=== PATIENT | male | born 1955 | race Caucasian/White ===

== ENCOUNTER 2021-10-28 02:51 | Emergency (ER) | payer BC, MEDICARE ==
[2021-10-28] MEDS ORDERED: Aspirin 81 MG Tab.Chew PO ONE (03:09)
[2021-10-28] MEDS ORDERED: Sodium Chloride 0.9% 10 ML Syringe FLUSH PRN (03:11)
[2021-10-28] MEDS ORDERED: Nitroglycerin 0.4 MG Tab.SL SL ONE (03:17)
[2021-10-28] MEDS ORDERED: Nitroglycerin 0.4 MG Tab.SL ONE (03:19)
[2021-10-28] MEDS ORDERED: Morphine 2 MG/ML SYRINGE IVPUSH ONE ×3 (03:29→05:08)
[2021-10-28] MEDS ORDERED: Sodium Chloride 0.9% 1,000 ML IV SCH (03:45)
[2021-10-28 04:59] LABS: CORONAVIRUS COVID-19 NAA NEGATIVE (NEGATIVE)
== END 2021-10-28 08:14 | disposition home or self-care (01) ==
LOC: JP.ED 02:51
DX: R07.9 Chest pain, unspecified (principal); E78.5 Hyperlipidemia, unspecified; Z20.822 Contact with and (suspected) exposure to COVID-19
CPT/HCPCS: 0241U; 36415; 71045; 71045-26; 80048; 84484; 85025; 85379; 85610; 85730; 93005; 93010; 96374; 96376; 99284; 99285-25; A9270-GY; J2270; J3490; J7030

== ENCOUNTER 2022-09-21 08:40 | Day surgery (SDC) | payer MEDICARE ==
[~2022-09-21 08:40] MED LIST: Midazolam 1 MG/ML 2 ML SDV ONE; Propofol 200 MG/20 ML SDV ONE; fentaNYL 100 MCG/2 ML SDV ONE
[2022-09-21] MEDS ORDERED: Lidocaine 1% with EPINEPHrine 1:100,000 50 ML MDV ONE (08:55)
[2022-09-21] MEDS ORDERED: Lactated Ringers 1,000 ML IV SCH (09:15)
[2022-09-21] MEDS ORDERED: Propofol 200 MG/20 ML SDV ONE (10:08)
[2022-09-21] MEDS ORDERED: Midazolam 1 MG/ML 2 ML SDV ONE (10:08)
[2022-09-21] MEDS ORDERED: fentaNYL 50 MCG/ML SDV ONE (10:08)
== END 2022-09-21 13:20 | disposition home or self-care (01) ==
LOC: JP.SDS 08:40
PROVIDERS: ATTEND Family Medicine
DX: Z12.11 Encounter for screening for malignant neoplasm of colon (principal); Z80.0 Family history of malignant neoplasm of digestive organs; D12.4 Benign neoplasm of descending colon
CPT/HCPCS: 88305; J2250; J2704; J3010; J7120

== ENCOUNTER → 2023-11-24 | Day surgery (SDC) | payer MEDICARE ==
[~2023-11-24] MED LIST changes: -fentaNYL 100 MCG/2 ML SDV ONE; +fentaNYL 50 MCG/ML SDV ONE
[2023-11-24] MEDS: Sodium Chloride 0.9% 1,000 ML IV SCH (09:00)
== END ==
LOC: JP.SDS 08:52
PROVIDERS: ATTEND Surgery
DX: K64.8 Other hemorrhoids (principal); K62.89 Other specified diseases of anus and rectum
CPT/HCPCS: 00811; 45380; 45398; 88305; J2250; J2704; J3010; J7030